=== PATIENT | male | born 1955 | race Asian ===

== ENCOUNTER 2024-10-20 13:04 | Inpatient (IN) | payer SELFPAY ==
[2024-10-20] VITALS (52 sets, daily range): BP systolic 61–166; BP diastolic 37–80; PULSE 52–85; RESP 16–34; TEMP 35.3–35.9; O2SAT 0–99
[~2024-10-20] VITALS: Ht 177.8 cm; Wt 93.0 kg
[2024-10-20] MEDS: TENECTEPLASE 50MG/VIAL (FOR MI OR PE) IV NR (13:21)
[2024-10-20] MEDS ORDERED: NOREPINEPHRINE 8MG/250ML PMX 250 ML IV ONE (13:30)
[2024-10-20] MEDS ORDERED: PIPERACILLIN/TAZO 3.375G/50ML 50 ML IV STA (13:33)
[2024-10-20] MEDS ORDERED: VASOPRESSIN 20 UNIT in SODIUM CHLORIDE 0.9% 99 ML IV STA (13:35)
[2024-10-20] MEDS ORDERED: ACETAMINOPHEN 650MG SUPP PR PRN (13:45)
[2024-10-20] MEDS ORDERED: ACETAMINOPHEN 650MG/20.3ML UDC NG PRN (13:45)
[2024-10-20] MEDS: VASOPRESSIN 20 UNIT in SODIUM CHLORIDE 0.9% 99 ML IV STA (13:51)
[2024-10-20] MEDS: NOREPINEPHRINE 8MG/250ML PMX 250 ML IV PRN ×2 (13:51→20:02)
[2024-10-20] MEDS: PIPERACILLIN/TAZO 3.375G/50ML 50 ML IV NR (14:00)
[2024-10-20 14:32] LABS: BG BASE EXCESS -31.3 mmol/L (-2.0-3.0); BG CARBOXYHEMOGLOBIN 1.1 % (0.5-1.5); BG DEOXYHEMOGLOBIN 14.8 % (0.0-5.0); BG FRACTION INSPIRED OXYGEN 100; BG HCO3 ACT 7.0 mmol/L (21.0-28.0); BG METHEMOGLOBIN 0.5 % (0.5-1.5); BG OXYGEN SATURATION 85.0 % (94.0-98.0); BG OXYHEMOGLOBIN 83.6 % (94.0-98.0); BG PCO2 76.4 mmHg (35.0-48.0); BG PH 6.579 (7.350-7.450); BG PO2 90.4 mmHg (83.0-108.0); BG SAMPLE SITE LEFT RADIAL; BG TIDAL VOLUME(mL) 500.0 mL; BG TOTAL HEMOGLOBIN 11.0 g/dL (13.5-17.5); BG TOTAL RESPIRATORY RATE 16 b/min; BG VENT MODE VENT - AC; BG VENT RATE 16.0 set
[2024-10-20 14:34] LABS: HEMATOCRIT. 33.9 % (42.0-52.0); HEMOGLOBIN. 10.2 g/dL (14.0-18.0); MEAN PLATELET VOLUME 10.8 fl (7.4-10.4); PLATELET 72 x1000/uL (130-400); RED BLOOD CELL COUNT 3.15 mill/uL (4.7-6.1); RED CELL DISTRIBUTION WIDTH 15.1 % (11.6-14.6)
[2024-10-20] MEDS: FENTANYL 2500MCG/250ML PMX 250 ML IV ONE (14:39)
[2024-10-20] MEDS ORDERED: FENTANYL 2500MCG/250ML PMX 250 ML IV PRN (14:45)
[2024-10-20] MEDS ORDERED: FENTANYL CITRATE 2,500 MCG in SODIUM CHLORIDE 0.9% 200 ML IV PRN (14:45)
[2024-10-20 14:49] LABS: CREATININE 3.5 mg/dL (0.6-1.3); TROPONIN I HIGH SENSITIVITY 21 ng/L (3.0-53)
[2024-10-20 14:50] LABS: UREA NITROGEN BLOOD 72 mg/dL (9-23)
[2024-10-20 14:51] LABS: ASPARTATE AMINOTRANSFERASE 102 IU/L (<34)
[2024-10-20 14:52] LABS: BILIRUBIN DIRECT 0.7 mg/dL (<=3.0); BILIRUBIN TOTAL 1.0 mg/dL (0.1-1.0); PROTEIN TOTAL 5.4 g/dL (6.0-8.3)
[2024-10-20 15:00] LABS: PHOSPHORUS 15.8 mg/dL (2.5-4.9)
[2024-10-20] MEDS ORDERED: EPINEPHRINE 5 MG in SODIUM CHLORIDE 0.9% 245 ML IV PRN (15:00)
[2024-10-20] MEDS: EPINEPHRINE 5 MG in SODIUM CHLORIDE 0.9% 245 ML IV STA (15:06)
[2024-10-20 15:25] LABS: BAND% 42.0 % (1.0-6.0); EOSINOPHILS % MANUAL 2.0 % (0.0-5.0); LYMPHOCYTES % MANUAL 13.0 % (20.0-50.0); METAMYELOCYTES % 1.0 % (0-0); MONOCYTES % MANUAL 1.0 % (2.0-8.0); MYELOCYTES % 2.0 % (0-0); NEUTROPHILS % MANUAL 39.0 % (45.0-75.0); NUCLEATED RED BLOOD CELLS 3 /100 WBC
[2024-10-20 15:26] LABS: PLATELET ESTIMATE MARKEDLY DECREASED
[2024-10-20] MEDS ORDERED: IOHEXOL-350 100 ML BOTTLE ONE ×2 (16:11→22:48)
[2024-10-20] MEDS ORDERED: IPRATROPIUM/ALBUTEROL 0.5-3(2.5)MG/3ML NEB HHN PRN ×2 (16:30→16:45)
[2024-10-20] MEDS: METHYLPREDNISOLONE SOD SUCC 125MG/2ML (ACT-O-VIAL) IV SCH ×2 (16:32→21:18)
[2024-10-20] MEDS ORDERED: ONDANSETRON HCL 4MG/2ML INJ IV PRN (16:45)
[2024-10-20] MEDS ORDERED: DOCUSATE SODIUM 100MG CAPSULE PO PRN (16:45)
[2024-10-20] MEDS ORDERED: CLONIDINE 0.1MG TABLET PO PRN (16:45)
[2024-10-20] MEDS ORDERED: MAGNESIUM/ALUMINUM HYDROXIDE/SIMETHICONE 30ML UDC PO PRN (16:45)
[2024-10-20] MEDS ORDERED: ACETAMINOPHEN 325MG TABLET PO PRN ×2 (16:45)
[2024-10-20] MEDS: SODIUM BICARBONATE 8.4% 50MEQ/50ML SYR IV SCH ×2 (17:04→21:20)
[2024-10-20] MEDS: IPRATROPIUM/ALBUTEROL 0.5-3(2.5)MG/3ML NEB HHN SCH (17:18)
[2024-10-20] MEDS: EPINEPHRINE 10 MG in SODIUM CHLORIDE 0.9% 240 ML IV PRN (17:19)
[2024-10-20] MEDS: ACETYLCYSTEINE 200MG/ML 20% VIAL 4ML ONE (17:21)
[2024-10-20 17:27] LABS: BG BASE EXCESS -23.4 mmol/L (-2.0-3.0); BG CARBOXYHEMOGLOBIN 1.5 % (0.5-1.5); BG DEOXYHEMOGLOBIN 25.6 % (0.0-5.0); BG FRACTION INSPIRED OXYGEN 100; BG HCO3 ACT 9.0 mmol/L (21.0-28.0); BG METHEMOGLOBIN 0.3 % (0.5-1.5); BG OXYGEN SATURATION 73.9 % (94.0-98.0); BG OXYHEMOGLOBIN 72.6 % (94.0-98.0); BG PCO2 51.9 mmHg (35.0-48.0); BG PEEP (cmH2O) 8.0 cmH2O; BG PH 6.856 (7.350-7.450); BG PO2 58.5 mmHg (83.0-108.0); BG SAMPLE SITE ALINE; BG TIDAL VOLUME(mL) 500.0 mL; BG TOTAL HEMOGLOBIN 8.2 g/dL (13.5-17.5); BG VENT MODE VENT - AC; BG VENT RATE 24.0 set
[2024-10-20] MEDS ORDERED: SODIUM BICARBONATE 8.4% 50MEQ/50ML SYR IV NR (17:30)
[2024-10-20] MEDS: SODIUM BICARBONATE 8.4% 50MEQ/50ML SYR IV NR ×2 (18:28→23:26)
[2024-10-20] MEDS: SODIUM BICARBONATE 150 MEQ in SODIUM CHLORIDE 0.45% 850 ML IV SCH (18:29)
[2024-10-20] MEDS: SEVELAMER CARBONATE 800 MG TABLET PO SCH (18:30)
[2024-10-20] MEDS: VANCOMYCIN 1.75GM PMX (XELLIA) 350 ML IV SCH (18:30)
[2024-10-20] MEDS: EPINEPHRINE 20 MG in SODIUM CHLORIDE 0.9% 480 ML IV PRN (19:26)
[2024-10-20 19:27] LABS: PLATELET 69 x1000/uL (130-400); RED BLOOD CELL COUNT 2.41 mill/uL (4.7-6.1); RED CELL DISTRIBUTION WIDTH 14.7 % (11.6-14.6)
[2024-10-20 19:39] LABS: CREATININE 3.6 mg/dL (0.6-1.3); UREA NITROGEN BLOOD 79.0 mg/dL (9-23)
[2024-10-20] MEDS ORDERED: PHENYLEPHRINE 50MG/250ML PMX 250 ML IV PRN (20:00)
[2024-10-20 20:25] LABS: TROPONIN I HIGH SENSITIVITY 96 ng/L (3.0-53)
[2024-10-20 20:28] LABS: BG BASE EXCESS -24.5 mmol/L (-2.0-3.0); BG CARBOXYHEMOGLOBIN 1.7 % (0.5-1.5); BG DEOXYHEMOGLOBIN 9.9 % (0.0-5.0); BG FRACTION INSPIRED OXYGEN 100; BG HCO3 ACT 9.7 mmol/L (21.0-28.0); BG METHEMOGLOBIN 0.1 % (0.5-1.5); BG OXYGEN SATURATION 89.9 % (94.0-98.0); BG OXYHEMOGLOBIN 88.3 % (94.0-98.0); BG PCO2 72.0 mmHg (35.0-48.0); BG PEEP (cmH2O) 12.0 cmH2O; BG PH 6.748 (7.350-7.450); BG PO2 83.0 mmHg (83.0-108.0); BG SAMPLE SITE ALINE; BG TIDAL VOLUME(mL) 400.0 mL; BG TOTAL HEMOGLOBIN 8.1 g/dL (13.5-17.5); BG VENT MODE VENT - AC; BG VENT RATE 24.0 set
[2024-10-20] MEDS: CALCIUM GLUCONATE 100MG/ML 10ML VIAL IV SCH (21:14)
[2024-10-20] MEDS: INSULIN REGULAR (HUMULIN R) 1000UNITS/10ML VIAL IV SCH (21:16)
[2024-10-20] MEDS: PIPERACILLIN/TAZO 3.375G/50ML 50 ML IV SCH (21:17)
[2024-10-20] MEDS: DEXTROSE 50% WATER 50ML SYRINGE IV SCH (21:18)
[2024-10-20] MEDS: PHENYLEPHRINE 100 MG in DEXT 5% WATER 240 ML IV PRN (21:19)
[2024-10-20] MEDS: NOREPINEPHRINE 32 MG in DEXT 5% WATER 218 ML IV PRN (21:20)
[2024-10-20 22:07] LABS: INR 1.3
[2024-10-20] MEDS: VASOPRESSIN 20 UNIT in SODIUM CHLORIDE 0.9% 99 ML IV PRN (22:32)
[2024-10-20 23:11] LABS: BG BASE EXCESS -24.0 mmol/L (-2.0-3.0); BG CARBOXYHEMOGLOBIN 1.7 % (0.5-1.5); BG DEOXYHEMOGLOBIN 9.5 % (0.0-5.0); BG FRACTION INSPIRED OXYGEN 100; BG HCO3 ACT 8.3 mmol/L (21.0-28.0); BG METHEMOGLOBIN 0.3 % (0.5-1.5); BG OXYGEN SATURATION 90.3 % (94.0-98.0); BG OXYHEMOGLOBIN 88.5 % (94.0-98.0); BG PCO2 48.8 mmHg (35.0-48.0); BG PEEP (cmH2O) 12.0 cmH2O; BG PH 6.850 (7.350-7.450); BG PO2 77.2 mmHg (83.0-108.0); BG SAMPLE SITE ALINE; BG TIDAL VOLUME(mL) 450.0 mL; BG TOTAL HEMOGLOBIN 8.1 g/dL (13.5-17.5); BG VENT MODE VENT - AC; BG VENT RATE 34.0 set
[2024-10-20] MEDS: ACETYLCYSTEINE 200MG/ML 20% VIAL 4ML INH SCH (23:46)
[2024-10-20] MEDS: ALBUTEROL (0.083%) 2.5MG/3ML NEB HHN SCH (23:47)
[2024-10-20 23:50] LABS: HEMATOCRIT. 24.4 % (42.0-52.0); HEMOGLOBIN. 7.6 g/dL (14.0-18.0); MEAN PLATELET VOLUME 10.4 fl (7.4-10.4); PLATELET 72 x1000/uL (130-400); RED BLOOD CELL COUNT 2.35 mill/uL (4.7-6.1); RED CELL DISTRIBUTION WIDTH 14.8 % (11.6-14.6)
[2024-10-20 23:54] LABS: INR 1.3
[2024-10-20 23:56] LABS: CREATININE 3.6 mg/dL (0.6-1.3)
[2024-10-20 23:57] LABS: UREA NITROGEN BLOOD 90.0 mg/dL (9-23)
[2024-10-21] VITALS (58 sets, daily range): BP systolic 61–143; BP diastolic 37–65; PULSE 53–87; RESP 30–34; TEMP 35.3616; O2SAT 75–99
[2024-10-21] MEDS ORDERED: DEXTROSE 50% WATER 50ML SYRINGE IV PRN ×2 (00:15→00:45)
[2024-10-21 00:16] LABS: ATYPICAL LYMPHOCYTES 1; BAND% 36.0 % (1.0-6.0); LYMPHOCYTES % MANUAL 14.0 % (20.0-50.0); METAMYELOCYTES % 2.0 % (0-0); MONOCYTES % MANUAL 2.0 % (2.0-8.0); MYELOCYTES % 1.0 % (0-0)
[2024-10-21 00:19] LABS: PLATELET ESTIMATE DECREASED
[2024-10-21] MEDS: LACTATED RINGERS 500 ML IV ONE (00:22)
[2024-10-21 00:36] LABS: NEUTROPHILS % MANUAL 45.0 % (45.0-75.0)
[2024-10-21 01:53] LABS: CREATININE 3.6 mg/dL (0.6-1.3); UREA NITROGEN BLOOD 83.0 mg/dL (9-23)
[2024-10-21 01:59] LABS: BG BASE EXCESS -22.1 mmol/L (-2.0-3.0); BG CARBOXYHEMOGLOBIN 1.6 % (0.5-1.5); BG DEOXYHEMOGLOBIN 9.4 % (0.0-5.0); BG FRACTION INSPIRED OXYGEN 100; BG HCO3 ACT 9.4 mmol/L (21.0-28.0); BG METHEMOGLOBIN 0.3 % (0.5-1.5); BG OXYGEN SATURATION 90.4 % (94.0-98.0); BG OXYHEMOGLOBIN 88.7 % (94.0-98.0); BG PCO2 48.5 mmHg (35.0-48.0); BG PEEP (cmH2O) 12.0 cmH2O; BG PH 6.905 (7.350-7.450); BG PO2 75.4 mmHg (83.0-108.0); BG SAMPLE SITE ALINE; BG TIDAL VOLUME(mL) 425.0 mL; BG TOTAL HEMOGLOBIN 7.9 g/dL (13.5-17.5); BG VENT MODE VENT - AC; BG VENT RATE 34.0 set
[2024-10-21 02:00] LABS: HEMATOCRIT. 24.2 % (42.0-52.0); HEMOGLOBIN. 7.5 g/dL (14.0-18.0); MEAN PLATELET VOLUME 9.9 fl (7.4-10.4); PLATELET 68 x1000/uL (130-400); RED BLOOD CELL COUNT 2.33 mill/uL (4.7-6.1); RED CELL DISTRIBUTION WIDTH 15.0 % (11.6-14.6)
[2024-10-21 02:17] LABS: TROPONIN I HIGH SENSITIVITY 141.0 ng/L (3.0-53)
[2024-10-21] MEDS: SODIUM BICARBONATE 8.4% 50MEQ/50ML SYR IV NR ×2 (02:25→10:38)
[2024-10-21] MEDS: DEXTROSE 50% WATER 50ML SYRINGE IV ONE (03:07)
[2024-10-21] MEDS: INSULIN REGULAR (HUMULIN R) 1000UNITS/10ML VIAL IV NR (03:10)
[2024-10-21 03:20] LABS: ATYPICAL LYMPHOCYTES 1; BAND% 21.0 % (1.0-6.0); LYMPHOCYTES % MANUAL 14.0 % (20.0-50.0); METAMYELOCYTES % 7.0 % (0-0); MONOCYTES % MANUAL 5.0 % (2.0-8.0); MYELOCYTES % 4.0 % (0-0); NEUTROPHILS % MANUAL 48.0 % (45.0-75.0)
[2024-10-21 03:21] LABS: PLATELET ESTIMATE DECREASED
[2024-10-21 04:11] LABS: TROPONIN I HIGH SENSITIVITY 151 ng/L (3.0-53)
[2024-10-21 04:24] LABS: BG BASE EXCESS -21.4 mmol/L (-2.0-3.0); BG CARBOXYHEMOGLOBIN 2.4 % (0.5-1.5); BG DEOXYHEMOGLOBIN 13.0 % (0.0-5.0); BG FRACTION INSPIRED OXYGEN 100; BG HCO3 ACT 10.1 mmol/L (21.0-28.0); BG METHEMOGLOBIN 0.3 % (0.5-1.5); BG OXYGEN SATURATION 86.6 % (94.0-98.0); BG OXYHEMOGLOBIN 84.3 % (94.0-98.0); BG PCO2 53.4 mmHg (35.0-48.0); BG PEEP (cmH2O) 12.0 cmH2O; BG PH 6.896 (7.350-7.450); BG PO2 68.0 mmHg (83.0-108.0); BG SAMPLE SITE ALINE; BG TIDAL VOLUME(mL) 425.0 mL; BG TOTAL HEMOGLOBIN 7.5 g/dL (13.5-17.5); BG VENT MODE VENT - AC; BG VENT RATE 34.0 set
[2024-10-21] MEDS: ALBUTEROL (0.083%) 2.5MG/3ML NEB HHN NR (04:28)
[2024-10-21 05:10] LABS: HEMATOCRIT. 22.9 % (42.0-52.0); HEMOGLOBIN. 7.1 g/dL (14.0-18.0); MEAN PLATELET VOLUME 10.2 fl (7.4-10.4); PLATELET 71 x1000/uL (130-400); RED BLOOD CELL COUNT 2.22 mill/uL (4.7-6.1); RED CELL DISTRIBUTION WIDTH 15.4 % (11.6-14.6)
[2024-10-21 05:26] LABS: CREATININE 3.6 mg/dL (0.6-1.3); TRIGLYCERIDE 108 mg/dL (0-150); UREA NITROGEN BLOOD 95 mg/dL (9-23)
[2024-10-21 05:32] LABS: T4 FREE 0.69 ng/dL (0.89-1.76)
[2024-10-21 05:33] LABS: LDL CHOLESTEROL < 5 mg/dL (5-100)
[2024-10-21 05:34] LABS: PHOSPHORUS 17.8 mg/dL (2.5-4.9)
[2024-10-21 05:35] LABS: TROPONIN I HIGH SENSITIVITY 160 ng/L (3.0-53)
[2024-10-21 06:26] LABS: BG BASE EXCESS -22.2 mmol/L (-2.0-3.0); BG CARBOXYHEMOGLOBIN 2.2 % (0.5-1.5); BG DEOXYHEMOGLOBIN 12.3 % (0.0-5.0); BG FRACTION INSPIRED OXYGEN 100; BG HCO3 ACT 9.0 mmol/L (21.0-28.0); BG METHEMOGLOBIN 0.3 % (0.5-1.5); BG OXYGEN SATURATION 87.4 % (94.0-98.0); BG OXYHEMOGLOBIN 85.2 % (94.0-98.0); BG PCO2 45.4 mmHg (35.0-48.0); BG PEEP (cmH2O) 12.0 cmH2O; BG PH 6.914 (7.350-7.450); BG PO2 68.9 mmHg (83.0-108.0); BG SAMPLE SITE ALINE; BG TIDAL VOLUME(mL) 450.0 mL; BG TOTAL HEMOGLOBIN 7.6 g/dL (13.5-17.5); BG VENT MODE VENT - AC; BG VENT RATE 34.0 set
[2024-10-21] MEDS: FUROSEMIDE 40MG/4ML VIAL IVP NR (06:42)
[2024-10-21] MEDS: CALCIUM GLUCONATE 1GM PREMIX 50 ML IV NR (07:48)
[2024-10-21 08:19] LABS: BG BASE EXCESS -21.7 mmol/L (-2.0-3.0); BG CARBOXYHEMOGLOBIN 3.4 % (0.5-1.5); BG DEOXYHEMOGLOBIN 11.4 % (0.0-5.0); BG FRACTION INSPIRED OXYGEN 100; BG HCO3 ACT 9.6 mmol/L (21.0-28.0); BG METHEMOGLOBIN 0.3 % (0.5-1.5); BG OXYGEN SATURATION 88.2 % (94.0-98.0); BG OXYHEMOGLOBIN 84.9 % (94.0-98.0); BG PCO2 50.1 mmHg (35.0-48.0); BG PEEP (cmH2O) 12.0 cmH2O; BG PH 6.902 (7.350-7.450); BG PO2 70.3 mmHg (83.0-108.0); BG SAMPLE SITE ALINE; BG TIDAL VOLUME(mL) 450.0 mL; BG TOTAL HEMOGLOBIN 7.2 g/dL (13.5-17.5); BG VENT MODE VENT - AC; BG VENT RATE 34.0 set
[2024-10-21] MEDS ORDERED: SODIUM POLYSTYRENE SULFONATE 15 G/60 ML BOT PO ONE (08:30)
[2024-10-21] MEDS: PANTOPRAZOLE SODIUM 40 MG/VIAL IV SCH (09:08)
[2024-10-21] MEDS: SODIUM ZIRCONIUM CYCLOSILICATE 10GM/PACKET PO SCH (09:24)
[2024-10-21] MEDS: SODIUM BICARBONATE 8.4% 50MEQ/50ML SYR IV SCH (09:24)
[2024-10-21 10:24] LABS: PLATELET 67 x1000/uL (130-400); RED BLOOD CELL COUNT 2.14 mill/uL (4.7-6.1); RED CELL DISTRIBUTION WIDTH 15.0 % (11.6-14.6)
[2024-10-21 10:41] LABS: CREATININE 3.7 mg/dL (0.6-1.3)
[2024-10-21 10:42] LABS: UREA NITROGEN BLOOD 86 mg/dL (9-23)
[2024-10-21 10:44] LABS: BILIRUBIN TOTAL 1.5 mg/dL (0.1-1.0); PROTEIN TOTAL 3.6 g/dL (6.0-8.3)
[2024-10-21 10:55] LABS: ASPARTATE AMINOTRANSFERASE 3597 IU/L (<34)
[2024-10-21 11:34] LABS: PHOSPHORUS 19.8 mg/dL (2.5-4.9); TROPONIN I HIGH SENSITIVITY 201 ng/L (3.0-53)
[2024-10-21 19:02] LABS: BAND% 44.0 % (1.0-6.0); LYMPHOCYTES % MANUAL 10.0 % (20.0-50.0); METAMYELOCYTES % 2.0 % (0-0); MONOCYTES % MANUAL 2.0 % (2.0-8.0); NEUTROPHILS % MANUAL 42.0 % (45.0-75.0)
[2024-10-21 19:03] LABS: PLATELET ESTIMATE MARKEDLY DECREASED
[2024-10-22] MEDS ORDERED: VANCOMYCIN 1.25GM/250ML 250 ML IV SCH (18:00)
== END 2024-10-21 11:08 | DRG 720 ==
LOC: EDBEDREQ 14:22 → EDBEDREQTM 14:22 → ER 14:32 → CVICU 14:33 → ENRESERV 14:43
PROVIDERS: ADMIT Hospitalist; ATTEND Hospitalist
PROC: 5A1935Z Respiratory Ventilation, Less than 24 Consecutive Hours (ICD-10-PCS; principal; 2024-10-20)
PROC: 0BH17EZ Insertion of Endotracheal Airway into Trachea, Via Natural or Artificial Opening (ICD-10-PCS; 2024-10-20)
PROC: 3E03317 Introduction of Other Thrombolytic into Peripheral Vein, Percutaneous Approach (ICD-10-PCS; 2024-10-20)
DX: A41.9 Sepsis, unspecified organism (principal); I46.9 Cardiac arrest, cause unspecified; I26.99 Other pulmonary embolism without acute cor pulmonale; G93.1 Anoxic brain damage, not elsewhere classified; R65.21 Severe sepsis with septic shock; G92.8 Other toxic encephalopathy; J96.01 Acute respiratory failure with hypoxia; E87.4 Mixed disorder of acid-base balance; K92.2 Gastrointestinal hemorrhage, unspecified; D69.6 Thrombocytopenia, unspecified; N17.9 Acute kidney failure, unspecified; E83.39 Other disorders of phosphorus metabolism; E88.09 Other disorders of plasma-protein metabolism, not elsewhere classified; N18.9 Chronic kidney disease, unspecified; E83.42 Hypomagnesemia; D53.9 Nutritional anemia, unspecified; E83.52 Hypercalcemia; E11.22 Type 2 diabetes mellitus with diabetic chronic kidney disease; E86.0 Dehydration; E87.0 Hyperosmolality and hypernatremia; E87.5 Hyperkalemia; I25.10 Atherosclerotic heart disease of native coronary artery without angina pectoris; I48.91 Unspecified atrial fibrillation; J18.9 Pneumonia, unspecified organism; Z79.899 Other long term (current) drug therapy
CPT/HCPCS: 36415; 36600; 71045; 71275; 74174; 76604; 80048; 80053; 80061; 80076; 82375; 82550; 82805; 82962; 83605; 83735; 83880; 84100; 84145; 84439; 84443; 84484; 85025; 85027; 85049; 86850; 86900; 87070; 87077; 92950; 93005; 93880; 94002; 94003; 94070; 94640; 94664; 96365; 96368; 96375; 99291; A4606; J0612; J1815; J1938; J2470; J2543; J2919; J3010; J3101; J3373; J3490; J7040; J7050; J7060; J7608; Q9967